=== PATIENT | female | born 1945 | race Asian ===

== ENCOUNTER 2019-07-28 16:17 | Inpatient (IN) | payer SELFPAY ==
[~2019-07-28] VITALS: Ht 157.5 cm; Wt 78.0 kg
[2019-07-28 17:25] LABS: EOSINOPHILS % 1.4 % (0.0-5.0); HEMATOCRIT. 39.5 % (36.0-48.0); HEMOGLOBIN. 13.2 g/dL (12.0-16.0); LYMPHOCYTES % 30.3 % (20.0-50.0); MEAN CORPUSCULAR HEMOGLOBIN 31.8 pg (28.0-32.0); MEAN CORPUSCULAR VOLUME 95.4 fL (81.0-99.0); MEAN PLATELET VOLUME 8.4 fl (7.4-10.4); MONOCYTES % 3.8 % (2.0-8.0); NEUTROPHILS % 63.5 % (40.0-76.0); PLATELET 265 x1000/uL (130-400); RED BLOOD CELL COUNT 4.14 mill/uL (4.2-5.4); RED CELL DISTRIBUTION WIDTH 14.2 % (11.6-14.6)
[2019-07-28 17:26] LABS: CHLORIDE 104 mEq/L (98-107)
[2019-07-28] MEDS ORDERED: SODIUM CHLORIDE 0.9% 1,000 ML IV ONE (17:52)
[2019-07-28] MEDS ORDERED: PIPERACILLIN/TAZ 3.375G PREMIX 50 ML IV ONE (18:00)
[2019-07-28] MEDS ORDERED: VANCOMYCIN 1 G PREMIX 200 ML IV ONE (18:00)
[2019-07-28] MEDS ORDERED: ASPIRIN 81MG TABLET PO ONE (18:00)
[2019-07-28] MEDS ORDERED: FUROSEMIDE 20MG/2ML VIAL IVP ONE (19:15)
[2019-07-28 20:24] LABS: BG BASE EXCESS -9.7 mmol/L (-2.0-2.0); BG BILEVEL POS AIRWAY PRESSURE 15/5; BG CARBOXYHEMOGLOBIN 0.7 % (0.5-1.5); BG DEOXYHEMOGLOBIN 8.4 % (0.0-5.0); BG FRACTION INSPIRED OXYGEN 100; BG METHEMOGLOBIN 0.2 % (0.0-1.5); BG OXYGEN SATURATION 91.5 % (92.0-98.5); BG OXYHEMOGLOBIN 90.7 % (94.0-97.0); BG PCO2 52.1 mmHg (35.0-45.0); BG PO2 78.8 mmHg (75.0-100.0); BG SAMPLE SITE LEFT RADIAL; BG TOTAL HEMOGLOBIN 15.5 g/dL (12.0-18.0); BG VENT MODE MASK - BIPAP
[2019-07-28] MEDS ORDERED: INSULIN REGULAR (HUMULIN R) 300UNITS/3ML SUBCUT ONE (20:45)
[2019-07-28 22:00] VITALS: BP 137/76
[2019-07-28] MEDS ORDERED: LOSA50TA41 MT (22:15)
[2019-07-28] MEDS ORDERED: LUTE1CAP5 PO (22:27)
[2019-07-28] MEDS ORDERED: SITA1TAB2 PO (22:27)
[2019-07-28] MEDS ORDERED: XAR15 PO (22:27)
[2019-07-28] MEDS ORDERED: ISOS20TA57 PO (22:27)
[2019-07-28] MEDS ORDERED: SPIR25TA PO (22:27)
[2019-07-28] MEDS ORDERED: CYAN100069 PO (22:33)
[2019-07-28] MEDS ORDERED: AMIO100T4 PO (22:33)
[2019-07-28] MEDS ORDERED: FURO20TA4 PO (22:33)
[2019-07-28 22:44] VITALS: BP 139/89
[2019-07-28] MEDS ORDERED: ONDANSETRON HCL 4MG/2ML INJ IV PRN (23:00)
[2019-07-28] MEDS ORDERED: IPRATROPIUM/ALBUTEROL 0.5-3(2.5)MG/3ML NEB NEB PRN (23:00)
[2019-07-28] MEDS ORDERED: MORPHINE SULFATE 2 MG/ML CPJ (NOT FOR IM USE) IV PRN (23:00)
[2019-07-28] MEDS ORDERED: CLONIDINE 0.1MG TABLET PO PRN (23:00)
[2019-07-28] MEDS ORDERED: LORAZEPAM 2MG/ML CPJ IV PRN (23:00)
[2019-07-29] VITALS (25 sets, daily range): BP systolic 94–125; BP diastolic 51–84
[2019-07-29] MEDS ORDERED: DEXTROSE 50% WATER 50ML SYRINGE IV PRN (03:45)
[2019-07-29] MEDS: BLOOD SUGAR DIAGNOSTIC STRIP TEST SCH ×4 (07:57→21:37)
[2019-07-29] MEDS: INSULIN LISPRO 100 UNITS/ML SUBCUT SCH ×4 (08:10→22:07)
[2019-07-29 08:43] LABS: CLARITY URINE TURBID (CLEAR); COLOR URINE YELLOW (YELLOW); KETONES URINE NEGATIVE (NEGATIVE); LEUKOCYTE ESTERASE URINE 1+ (NEGATIVE); NITRITE URINE POSITIVE (NEGATIVE); OCCULT BLOOD URINE 3+ (NEGATIVE); PROTEIN URINE 1+ (NEGATIVE); UROBILINOGEN URINE 0.2 E.U./dL (0.2-1.0)
[2019-07-29] MEDS ORDERED: ENOXAPARIN 40MG/0.4ML SYR SUBCUT SCH (09:00)
[2019-07-29 09:13] LABS: *AMPHETAMINES SCREEN URINE NEGATIVE (NEGATIVE); *BARBITURATES SCREEN URINE NEGATIVE (NEGATIVE); *BENZODIAZEPINES SCREEN URINE NEGATIVE (NEGATIVE); *COCAINE SCREEN URINE NEGATIVE (NEGATIVE); METHADONE URINE SCREEN NEGATIVE (NEGATIVE); OPIATES URINE SCREEN NEGATIVE (NEGATIVE)
[2019-07-29 09:14] LABS: CANNABINOID URINE SCREEN NEGATIVE (NEGATIVE); PHENCYCLIDINE URINE SCREEN NEGATIVE (NEGATIVE)
[2019-07-29] MEDS: FOLIC ACID 1MG TABLET PO SCH (09:43)
[2019-07-29] MEDS: ASPIRIN 81MG TABLET PO SCH (09:43)
[2019-07-29] MEDS: INSULIN GLARGINE UD 100 UNITS/ML SYR SUBCUT SCH ×2 (10:35→22:08)
[2019-07-29] MEDS ORDERED: FUROSEMIDE 40MG/4ML VIAL IVP SCH (11:00)
[2019-07-29] MEDS ORDERED: NITROGLYCERIN OINT 1GM/INCH UDPKT TD SCH (11:00)
[2019-07-29 11:34] LABS: CREATINE KINASE MB FRACTION 100.1 ng/mL (0.5-3.6)
[2019-07-29] MEDS ORDERED: NITROGLYCERIN 50MG PREMIX 250 ML IV PRN ×2 (12:45)
[2019-07-29] MEDS: PIPERACILLIN/TAZOBACTAM 3.375 G in DEXT 5% WATER 100 ML IV SCH (18:00)
[2019-07-29] MEDS ORDERED: ENOXAPARIN 60MG/0.6ML SYR SUBCUT SCH (18:00)
[2019-07-29] MEDS: ENOXAPARIN 80MG/0.8ML SYR SUBCUT SCH (18:36)
[2019-07-29 20:41] LABS: BG BASE EXCESS 3.6 mmol/L (-2.0-2.0); BG CARBOXYHEMOGLOBIN 0.9 % (0.5-1.5); BG DEOXYHEMOGLOBIN 6.2 % (0.0-5.0); BG FRACTION INSPIRED OXYGEN 21; BG HCO3 ACT 28.2 mmol/L (22.0-26.0); BG METHEMOGLOBIN 0.2 % (0.0-1.5); BG OXYGEN SATURATION 93.7 % (92.0-98.5); BG OXYHEMOGLOBIN 92.7 % (94.0-97.0); BG PCO2 42.4 mmHg (35.0-45.0); BG PO2 66.5 mmHg (75.0-100.0); BG SAMPLE SITE RIGHT RADIAL; BG TOTAL HEMOGLOBIN 13.6 g/dL (12.0-18.0); BG VENT MODE ROOM AIR
[2019-07-29 21:33] LABS: CREATINE KINASE MB FRACTION 34.7 ng/mL (0.5-3.6)
[2019-07-30] VITALS (52 sets, daily range): BP systolic 90–146; BP diastolic 35–94
[2019-07-30] MEDS: PIPERACILLIN/TAZOBACTAM 3.375 G in DEXT 5% WATER 100 ML IV SCH ×4 (01:25→17:18)
[2019-07-30 04:13] LABS: BASOPHILS % 0.8 % (0.0-2.0); EOSINOPHILS % 0.4 % (0.0-5.0); HEMATOCRIT. 37.7 % (36.0-48.0); HEMOGLOBIN. 12.5 g/dL (12.0-16.0); LYMPHOCYTES % 12.1 % (20.0-50.0); MEAN CORPUSCULAR HEMOGLOBIN 31.1 pg (28.0-32.0); MEAN CORPUSCULAR VOLUME 94.1 fL (81.0-99.0); MEAN PLATELET VOLUME 8.4 fl (7.4-10.4); MONOCYTES % 5.1 % (2.0-8.0); NEUTROPHILS % 81.6 % (40.0-76.0); PLATELET 235 x1000/uL (130-400)
[2019-07-30] MEDS: ENOXAPARIN 80MG/0.8ML SYR SUBCUT SCH (06:00)
[2019-07-30] MEDS: BLOOD SUGAR DIAGNOSTIC STRIP TEST SCH ×4 (07:50→21:48)
[2019-07-30] MEDS: INSULIN LISPRO 100 UNITS/ML SUBCUT SCH ×4 (08:20→21:00)
[2019-07-30] MEDS: FUROSEMIDE 40MG/4ML VIAL IVP SCH (09:00)
[2019-07-30] MEDS: ASPIRIN 81MG TABLET PO SCH (09:00)
[2019-07-30] MEDS: FOLIC ACID 1MG TABLET PO SCH (09:00)
[2019-07-30 09:05] LABS: BG BASE EXCESS 2.4 mmol/L (-2.0-2.0); BG CARBOXYHEMOGLOBIN 1.5 % (0.5-1.5); BG DEOXYHEMOGLOBIN 3.7 % (0.0-5.0); BG FRACTION INSPIRED OXYGEN 28; BG HCO3 ACT 26.9 mmol/L (22.0-26.0); BG METHEMOGLOBIN 0.2 % (0.0-1.5); BG OXYGEN SATURATION 96.2 % (92.0-98.5); BG OXYHEMOGLOBIN 94.6 % (94.0-97.0); BG PCO2 41.1 mmHg (35.0-45.0); BG PH 7.433 (7.350-7.450); BG PO2 82.6 mmHg (75.0-100.0); BG SAMPLE SITE RIGHT RADIAL; BG VENT MODE NASAL CANNULA
[2019-07-30] MEDS ORDERED: IOHEXOL-300 100 ML BOTTLE ONE ×3 (09:49→10:29)
[2019-07-30] MEDS ORDERED: LIDOCAINE HCL 1% 20ML VIAL (Pyxis) INJ ONE (09:49)
[2019-07-30] MEDS ORDERED: FENTANYL CITRATE/PF 50MCG/ML 2ML VIAL ONE (09:50)
[2019-07-30] MEDS ORDERED: MIDAZOLAM HCL 2 MG/2 ML VIAL ONE (09:50)
[2019-07-30] MEDS ORDERED: EPTIFIBATIDE 2 MG/ML 10ML VIAL IV ONE (10:40)
[2019-07-30] MEDS ORDERED: IODIXANOL 320MG/ML 100 ML BOTTLE IV ONE (10:46)
[2019-07-30] MEDS ORDERED: ACETAMINOPHEN 325MG TABLET PO PRN (11:15)
[2019-07-30] MEDS ORDERED: ONDANSETRON HCL 4MG/2ML INJ IV PRN (11:15)
[2019-07-30] MEDS ORDERED: ATROPINE SULFATE 1MG/10ML SYR IV PRN (11:15)
[2019-07-30] MEDS ORDERED: ASPIRIN 325MG EC TABLET PO ONE (11:19)
[2019-07-30] MEDS: POTASSIUM CHLORIDE 20MEQ/PACKET PO SCH (12:43)
[2019-07-30] MEDS: INSULIN GLARGINE UD 100 UNITS/ML SYR SUBCUT SCH ×2 (12:48→22:15)
[2019-07-30] MEDS ORDERED: NITROGLYCERIN 50MCG/ML 10ML VIAL (CATH LAB) IV ONE (14:23)
[2019-07-30] MEDS ORDERED: NICARDIPINE 100MCG/ML 10ML VIAL (CATH LAB) IV ONE (14:23)
[2019-07-30] MEDS ORDERED: HEPARIN SODIUM 1,000 UNIT/1ML VIAL IV ONE (14:23)
[2019-07-30] MEDS ORDERED: PHENYLEPHRINE 100MCG/ML 10ML VIAL (CATH LAB) IV ONE (14:23)
[2019-07-30] MEDS ORDERED: IOHEXOL-350 100 ML BOTTLE ONE (19:19)
[2019-07-31] VITALS (21 sets, daily range): BP systolic 93–130; BP diastolic 44–81
[2019-07-31] MEDS: PIPERACILLIN/TAZOBACTAM 3.375 G in DEXT 5% WATER 100 ML IV SCH ×5 (01:05→23:19)
[2019-07-31 07:05] LABS: BASOPHILS % 0.4 % (0.0-2.0); EOSINOPHILS % 0.6 % (0.0-5.0); HEMATOCRIT. 33.7 % (36.0-48.0); HEMOGLOBIN. 11.1 g/dL (12.0-16.0); LYMPHOCYTES % 9.4 % (20.0-50.0); MEAN CORPUSCULAR HEMOGLOBIN 31.1 pg (28.0-32.0); MEAN CORPUSCULAR VOLUME 94.4 fL (81.0-99.0); MEAN PLATELET VOLUME 8.7 fl (7.4-10.4); MONOCYTES % 6.6 % (2.0-8.0); PLATELET 209 x1000/uL (130-400); RED BLOOD CELL COUNT 3.57 mill/uL (4.2-5.4); RED CELL DISTRIBUTION WIDTH 14.3 % (11.6-14.6)
[2019-07-31] MEDS: BLOOD SUGAR DIAGNOSTIC STRIP TEST SCH ×4 (07:55→20:33)
[2019-07-31 07:58] LABS: PROTHROMBIN TIME 10.7 sec (9.6-11.0)
[2019-07-31] MEDS: APIXABAN 5 MG TABLET PO SCH ×2 (08:20→17:50)
[2019-07-31] MEDS: FOLIC ACID 1MG TABLET PO SCH (08:20)
[2019-07-31] MEDS: POTASSIUM CHLORIDE 20MEQ/PACKET PO SCH (08:20)
[2019-07-31] MEDS: ASPIRIN 81MG TABLET PO SCH (08:20)
[2019-07-31] MEDS: INSULIN LISPRO 100 UNITS/ML SUBCUT SCH ×4 (08:20→20:33)
[2019-07-31] MEDS: FUROSEMIDE 40MG/4ML VIAL IVP SCH (08:20)
[2019-07-31] MEDS: INSULIN GLARGINE UD 100 UNITS/ML SYR SUBCUT SCH ×2 (10:30→22:12)
[2019-07-31] MEDS: HYDROCODONE/ACETAMINOPHEN 5/325MG TABLET PO PRN (18:05)
[2019-07-31] MEDS: ATORVASTATIN CALCIUM 10MG TABLET PO SCH (20:36)
[2019-08-01] VITALS (11 sets, daily range): BP systolic 98–149; BP diastolic 55–79
[2019-08-01] MEDS: PIPERACILLIN/TAZOBACTAM 3.375 G in DEXT 5% WATER 100 ML IV SCH ×3 (05:17→17:09)
[2019-08-01] MEDS: BLOOD SUGAR DIAGNOSTIC STRIP TEST SCH ×4 (06:11→21:00)
[2019-08-01] MEDS: INSULIN LISPRO 100 UNITS/ML SUBCUT SCH ×3 (06:11→16:50)
[2019-08-01 07:49] LABS: BASOPHILS % 0.7 % (0.0-2.0); EOSINOPHILS % 0.8 % (0.0-5.0); HEMATOCRIT. 31.3 % (36.0-48.0); HEMOGLOBIN. 10.4 g/dL (12.0-16.0); LYMPHOCYTES % 10.9 % (20.0-50.0); MEAN CORPUSCULAR HEMOGLOBIN 31.5 pg (28.0-32.0); MEAN CORPUSCULAR VOLUME 94.3 fL (81.0-99.0); MEAN PLATELET VOLUME 8.9 fl (7.4-10.4); MONOCYTES % 5.6 % (2.0-8.0); PLATELET 199 x1000/uL (130-400); RED BLOOD CELL COUNT 3.32 mill/uL (4.2-5.4)
[2019-08-01] MEDS: POTASSIUM CHLORIDE 20MEQ/PACKET PO SCH (08:21)
[2019-08-01] MEDS: APIXABAN 5 MG TABLET PO SCH ×2 (08:21→17:09)
[2019-08-01] MEDS: ASPIRIN 81MG TABLET PO SCH (08:21)
[2019-08-01] MEDS: FOLIC ACID 1MG TABLET PO SCH (08:21)
[2019-08-01] MEDS: FUROSEMIDE 40MG/4ML VIAL IVP SCH (08:21)
[2019-08-01] MEDS ORDERED: LEVO500T2 MT (08:27)
[2019-08-01] MEDS ORDERED: POTA20TA82 MT (08:27)
[2019-08-01] MEDS ORDERED: FURO-151 MT (08:27)
[2019-08-01] MEDS ORDERED: ASPI-1158 MT (08:27)
[2019-08-01] MEDS ORDERED: APIX5TAB MT (08:27)
[2019-08-01] MEDS ORDERED: ATOR10TA MT (08:27)
[2019-08-01] MEDS: INSULIN GLARGINE UD 100 UNITS/ML SYR SUBCUT SCH (11:10)
[2019-08-01] MEDS: HYDROCODONE/ACETAMINOPHEN 5/325MG TABLET PO PRN (17:13)
[2019-08-02] MEDS: ATORVASTATIN CALCIUM 10MG TABLET PO SCH (00:52)
[2019-08-02] MEDS: INSULIN LISPRO 100 UNITS/ML SUBCUT SCH ×2 (00:52→07:20)
[2019-08-02] MEDS: INSULIN GLARGINE UD 100 UNITS/ML SYR SUBCUT SCH (00:55)
[2019-08-02] MEDS: PIPERACILLIN/TAZOBACTAM 3.375 G in DEXT 5% WATER 100 ML IV SCH ×2 (01:08→06:47)
[2019-08-02] MEDS: BLOOD SUGAR DIAGNOSTIC STRIP TEST SCH (06:48)
[2019-08-02 07:56] LABS: BASOPHILS % 0.5 % (0.0-2.0); EOSINOPHILS % 0.8 % (0.0-5.0); HEMATOCRIT. 33.2 % (36.0-48.0); HEMOGLOBIN. 11.2 g/dL (12.0-16.0); LYMPHOCYTES % 11.1 % (20.0-50.0); MEAN CORPUSCULAR HEMOGLOBIN 31.8 pg (28.0-32.0); MEAN CORPUSCULAR VOLUME 94.5 fL (81.0-99.0); MONOCYTES % 6.6 % (2.0-8.0); PLATELET 217 x1000/uL (130-400); RED BLOOD CELL COUNT 3.52 mill/uL (4.2-5.4); RED CELL DISTRIBUTION WIDTH 13.9 % (11.6-14.6)
[2019-08-02 08:00] VITALS: BP 129/59
[2019-08-02 08:10] LABS: CHLORIDE 103 mEq/L (98-107)
[2019-08-02] MEDS: ASPIRIN 81MG TABLET PO SCH (08:41)
[2019-08-02] MEDS: POTASSIUM CHLORIDE 20MEQ/PACKET PO SCH (08:41)
[2019-08-02] MEDS: APIXABAN 5 MG TABLET PO SCH (08:41)
[2019-08-02] MEDS: FOLIC ACID 1MG TABLET PO SCH (08:41)
[2019-08-02] MEDS: FUROSEMIDE 40MG/4ML VIAL IVP SCH (08:41)
[2019-08-02] MEDS ORDERED: INSULIN GLARGINE UD 100 UNITS/ML SYR SUBCUT SCH (10:00)
== END 2019-08-02 10:55 | disposition home or self-care (01) | DRG 710 ==
LOC: EDSEX 16:17 → ER 16:17 → 5EST 18:01 → EDBEDREQ 18:06 → EDBEDREQTM 18:06 → EDBEDREQSVC 18:44 → ENRESERV 20:06 → CVICU 07-29 13:15 → 3WST 07-31 16:05
PROVIDERS: ADMIT Internal Medicine Nephrology; ATTEND Internal Medicine Nephrology
PROC: 5A09357 Assistance with Respiratory Ventilation, Less than 24 Consecutive Hours, Continuous Positive Airway Pressure (ICD-10-PCS; 2019-07-28)
PROC: 02723ZZ Dilation of Coronary Artery, Three Arteries, Percutaneous Approach (ICD-10-PCS; principal; 2019-07-30)
PROC: 02HV33Z Insertion of Infusion Device into Superior Vena Cava, Percutaneous Approach (ICD-10-PCS; 2019-07-30)
PROC: B548ZZA Ultrasonography of Superior Vena Cava, Guidance (ICD-10-PCS; 2019-07-30)
PROC: 4A023N7 Measurement of Cardiac Sampling and Pressure, Left Heart, Percutaneous Approach (ICD-10-PCS; 2019-07-30)
PROC: B2111ZZ Fluoroscopy of Multiple Coronary Arteries using Low Osmolar Contrast (ICD-10-PCS; 2019-07-30)
PROC: B2151ZZ Fluoroscopy of Left Heart using Low Osmolar Contrast (ICD-10-PCS; 2019-07-30)
PROC: 3E033PZ Introduction of Platelet Inhibitor into Peripheral Vein, Percutaneous Approach (ICD-10-PCS; 2019-07-30)
DX: A41.51 Sepsis due to Escherichia coli [E. coli] (principal); I21.4 Non-ST elevation (NSTEMI) myocardial infarction; J96.01 Acute respiratory failure with hypoxia; I50.43 Acute on chronic combined systolic (congestive) and diastolic (congestive) heart failure; E87.2 Acidosis; D68.59 Other primary thrombophilia; I25.110 Atherosclerotic heart disease of native coronary artery with unstable angina pectoris; N39.0 Urinary tract infection, site not specified; I11.0 Hypertensive heart disease with heart failure; E11.9 Type 2 diabetes mellitus without complications; E78.5 Hyperlipidemia, unspecified; I48.20 Chronic atrial fibrillation, unspecified; R53.81 Other malaise; I48.92 Unspecified atrial flutter; I45.10 Unspecified right bundle-branch block; I34.0 Nonrheumatic mitral (valve) insufficiency; E78.00 Pure hypercholesterolemia, unspecified; B96.20 Unspecified Escherichia coli [E. coli] as the cause of diseases classified elsewhere; Z79.4 Long term (current) use of insulin; Z83.3 Family history of diabetes mellitus; Z79.899 Other long term (current) drug therapy; Z82.49 Family history of ischemic heart disease and other diseases of the circulatory system; Z79.01 Long term (current) use of anticoagulants; Z79.82 Long term (current) use of aspirin
CPT/HCPCS: 36415; 36600; 71045; 71275; 76937; 80048; 80061; 80305; 81003; 82375; 82550; 82553; 82805; 82962; 83036; 83605; 83735; 83880; 84145; 84443; 84484; 85347; 87077; 87186; 92920; 93005; 93306; 93458; 94660; 97162; 99291; C1725; C1769; C1887; C1893; J1327; J1644; J1650; J1815; J1940; J2250; J2370; J2543; J3010; J3370; J3490; J7030; J7040; J7060; Q9967; A4315